=== PATIENT | male | born 1995 | race Caucasian/White ===

== ENCOUNTER 2018-12-18 11:32 | Emergency (ER) | payer SELFPAY ==
--- NOTE | 2018-12-18 12:03 | ER Document Report ---
ED General - General Chief Complaint: Ankle Pain Stated Complaint: ANKLE PAIN Time Seen by Provider: 12/18/18 11:57 Notes: 23-year-old male presents with right ankle lateral bruising and swelling and pain moderate, not preventing him from walking after he stepped in hole and twisted his ankle 3 days ago. No knee pain. TRAVEL OUTSIDE OF THE [place] IN LAST 30 DAYS: No - Related Data Allergies/Adverse Reactions: No Known Allergies Allergy (Verified 12/18/18 11:50) Past Medical History - Social History Smoking Status: Current Every Day Smoker Chew tobacco use (# tins/day): No Frequency of alcohol use: Occasional Drug Abuse: None Family History: None Patient has suicidal ideation: No Patient has homicidal ideation: No Renal/ Medical History: Denies: Hx Peritoneal Dialysis Review of Systems - Review of Systems Notes: REVIEW OF SYSTEMS GEN: Denies fever, chills, weight loss MSK: Ankle pain and edema, SKIN: Denies rash, skin lesions LYMPH: Denies swollen glands/lymph nodes NEURO: Denies headache, focal weakness or numbness, dizziness PHYSICAL EXAMINATION General: No acute distress, well-nourished Head: Atraumatic, normocephalic ENT: Mouth normal, oropharynx moist, lips normal Eyes: Conjunctiva normal, pupils equal, lids normal Neck: No JVD, supple, no guarding Resp: No resp distress, equal chest rise GI: Nondistended, no guarding Back: No midline or CVA tenderness Ext: No deformities, positive edema ecchymosis and tenderness around the right lateral male Skin: Well-perfused, no rash Neuro: Awake, alert. Face symmetric. Physical Exam - Vital signs Vitals: Temp Pulse Resp BP Pulse Ox 98.4 F 86 14 141/89 H 100 12/18/18 11:51 12/18/18 11:51 12/18/18 11:51 12/18/18 11:51 12/18/18 11:51 Course - Re-evaluation Re-evalutation: 12/18/18 12:02 3-day old ankle injury x-ray negative. Likely sprain rather than high ankle sprain. Dante wrap weightbearing as tolerated Motrin ice elevation. I have discussed with the patient there likely diagnosis, aftercare plan, follow-up plans and my usual and customary return precautions. They verbalized understanding of this. - Vital Signs Vital signs: Temp Pulse Resp BP Pulse Ox 98.0 F 80 16 140/82 H 100 12/18/18 12:58 12/18/18 12:58 12/18/18 12:58 12/18/18 12:58 12/18/18 12:58 - Diagnostic Test Radiology reviewed: Image reviewed, Reports reviewed Discharge - Discharge Clinical Impression: Moderate right ankle sprain Qualifiers: Encounter type: initial encounter Qualified Code(s): S93.401A - Sprain of unspecified ligament of right ankle, initial encounter Condition: Good Disposition: HOME, SELF-CARE Instructions: Ice Packs ([facility]), Sprained Ankle ([facility])
[2018-12-18 12:59] VITALS: BP 140/82
--- NOTE | 2018-12-18 23:00 | RADIOLOGY REPORT (SQ) ---
EXAM DESCRIPTION: XR ANKLE 3 OR MORE VIEWS COMPLETED DATE/TME: 12/18/2018 11:57 CLINICAL HISTORY: 23 years Male, inj COMPARISON: None. Findings: Swelling at the right lateral malleolus. Bones, joints, and soft tissues of the RIGHT XR ANKLE 3 VIEWS appear otherwise intact. IMPRESSION: Swelling at the right lateral malleolus.
== END 2018-12-18 12:59 | disposition home or self-care (01) ==
LOC: ER 11:32
DX: S93.401A Sprain of unspecified ligament of right ankle, initial encounter (principal); X50.1XXA Overexertion from prolonged static or awkward postures, initial encounter; F17.200 Nicotine dependence, unspecified, uncomplicated
CPT/HCPCS: 99283